=== PATIENT | male | born 1990 | race Caucasian/White ===

== ENCOUNTER 2019-11-13 13:09 | Emergency (ER) | payer SELFPAY ==
[~2019-11-13 13:09] MED LIST: CLINDAMYCIN150 MG PO; DAYPRO600 M1 PO; ELAVIL25 MG PO; FLEXERIL10 MG PO; KEFLEX500 MG PO; KLONOPIN2 MG PO; NAPROSYN EC375 MG PO; NKHM; NKHM PO; PEN-VEE K500 MG PO; PENICILLIN VK500 MG PO; ROBAXIN750 MG PO; TRAMADOL HCL50 MG PO; VICODIN 5/500 505 MG PO; XANAX1 MG PO
== END 2019-11-13 14:09 | disposition home or self-care (01) ==
LOC: ED 13:09
DX: F11.23 Opioid dependence with withdrawal (principal); F11.20 Opioid dependence, uncomplicated; F31.9 Bipolar disorder, unspecified; Z88.0 Allergy status to penicillin; Z88.8 Allergy status to other drugs, medicaments and biological substances

== ENCOUNTER 2019-11-14 10:12 | Emergency (ER) | payer SELFPAY ==
[~2019-11-14] VITALS: Ht 185.4 cm; Wt 102.1 kg
== END 2019-11-14 11:12 | disposition home or self-care (01) ==
LOC: ED 10:12
DX: F11.20 Opioid dependence, uncomplicated (principal); F31.9 Bipolar disorder, unspecified; Z88.8 Allergy status to other drugs, medicaments and biological substances; Z88.0 Allergy status to penicillin